=== PATIENT | female | born 1990 | race Caucasian/White ===

== ENCOUNTER 2023-08-22 08:50 | Outpatient (CLI) | payer OTHER, SELFPAY ==
--- NOTE | 2023-08-22 08:56 | MM_ITS ---
WS: [id number] BILATERAL 3D TOMOSYNTHESIS DIGITAL DIAGNOSTIC MAMMOGRAPHY WITH CAD CLINICAL INFORMATION: BREAST LUMP ON R SIDE @ 8 O'CLOCK POSITION HISTORY: RIGHT breast pain and lump COMPARISON: Baseline TECHNIQUE: Bilateral CC, MLO, and ML views. FINDINGS: The breasts are composed of heterogeneous fibroglandular density, which can limit the detection of sm all underlying mass lesions. Palpable marker upper outer quadrant RIGHT breast. Dense underlying pare nchymal tissue. Partially obscured nodular density in this area measuring 1.5 cm. Ultrasound of this area is pending. Unremarkable LEFT breast. No suspicious focal mass, asymmetry, calcifications, or architectural distortion. ULTRASOUND BREAST RIGHT TECHNIQUE: Ultrasound right breast focused area of concern. CLINICAL INFORMATION: BREAST LUMP ON R SIDE @ 8 O'CLOCK POSITION FINDINGS: Ultrasound RIGHT breast in the area of concern. Well-circumscribed gently lobulated hypoechoic nodule in the area of concern measuring 1.0 x 0.7 x 0.6 cm. This most likely represents a fibroadenoma in a patient this age but recommend further evaluation with ultrasound-guided biopsy for definitive asses sment. IMPRESSION: MM/[place] [id number] BI-RADS: 4-Suspicious Finding-Biopsy Should Be Considered FOLLOW UP: US Guided Biopsy Recommended Recommend ultrasound-guided biopsy of the RIGHT breast lesion
== END 2023-08-22 08:51 | disposition home or self-care (01) ==
LOC: RAD 08:50
PROVIDERS: PCP Nurse Practitioner Family; Visit Provider Nurse Practitioner Family
DX: N63.13 Unspecified lump in the right breast, lower outer quadrant (principal)
CPT/HCPCS: 76642; 77062; G0279

== ENCOUNTER 2023-09-11 10:39 | Outpatient (CLI) | payer OTHER, SELFPAY ==
--- NOTE | 2023-09-11 10:42 | US_ITS ---
WS: [id number] ULTRASOUND-GUIDED RIGHT BREAST BIOPSY HISTORY: Breast lump on right side at 8 o'clock position COMPARISON: 08/22/2023 Procedure, risks and complications are explained to the patient. Medications are reviewed. Consent is obtained. The mass in the RIGHT breast is localized with ultrasound. Mass localizes to 10:00, 8 cm from the nip ple. Skin is cleansed with ChloraPrep and anesthetized with 1% buffered lidocaine. Small dermatome is made. Under sterile conditions mass is biopsied with a 14-gauge Achieve needle. Multiple core biopsi es are performed. Material placed in formalin and sent to pathology for review. No complications enco untered. Breast tissue marker (Bard ultrasound enhanced ribbon): Single. Patient left the radiology suite with no complications. Patient is instructed to return to [facility] [place] or [facility] with any concerns. US/[place] [id number] IMPRESSION: 1. Uncomplicated core needle biopsy RIGHT breast mass at 10:00. PATHOLOGY: Fibroepithelial lesion consistent with a fibroadenoma. Please see [facility] pathology report for further details. RECOMMENDATION: RIGHT breast ultrasound follow-up in 6 months.
== END 2023-09-11 10:40 | disposition home or self-care (01) ==
LOC: RAD 10:39
PROVIDERS: PCP Nurse Practitioner Family; Visit Provider Nurse Practitioner Family
DX: N63.13 Unspecified lump in the right breast, lower outer quadrant (principal)
CPT/HCPCS: 19083; 88305

== ENCOUNTER 2024-03-31 08:40 | Outpatient (CLI) | payer OTHER, SELFPAY ==
--- NOTE | 2024-03-31 08:51 | US_ITS ---
WS: [id number] ULTRASOUND RIGHT BREAST, limited HISTORY: FIBROADENOMA OF R BREAST, 6-month follow-up. COMPARISON: 09/11/2023, 08/22/2023 TECHNIQUE: 2-D and Doppler. Ultrasound is performed of the previously biopsied mass in the RIGHT breast at 10:00, 8 cm from the n ipple. Reidentified is the hypoechoic mass measuring 0.9 x 0.9 x 0.6 cm without increase in size. Bio psy clip is noted within the mass. US/US breast RT complete [id number] IMPRESSION: BI-RADS: 2- Benign FOLLOW-UP: See Report Return to screening mammography beginning at the age of 40.
== END 2024-03-31 08:41 | disposition home or self-care (01) ==
LOC: RAD 08:42
PROVIDERS: PCP Nurse Practitioner Family; Visit Provider Nurse Practitioner Family
DX: D24.1 Benign neoplasm of right breast (principal)
CPT/HCPCS: 76641